=== PATIENT | male | born 1945 | race Caucasian/White ===

== ENCOUNTER 2025-02-16 08:13 | Emergency (ER) | payer MEDICARE, OTHER, SELFPAY ==
[2025-02-16] VITALS (30 sets, daily range): BP systolic 102–170; BP diastolic 68–140; PULSE 70; O2SAT 100; BMI 26.6
--- NOTE | 2025-02-16 11:57 | EDRN ---
Pt does not have a ride or someone to be w/ him when he gets home. Daughter was unable to do this pt states.
--- NOTE | 2025-02-16 11:58 | EDRN ---
Pt calling for a ride and someone to stay w/ him now.
--- NOTE | 2025-02-16 12:02 | EDRN ---
Pt will be picked up by Shane Bourne, a friend.
[2025-02-16] MEDS: DIPRIVAN 80 MG IV (12:11)
--- NOTE | 2025-02-16 12:36 | ED.GENMED ---
History of Present Illness
General
Chief Complaint: Fall
Source: patient
Exam Limitations: none
Time Seen by Provider: 02/16/25 08:30
Nursing documentation reviewed up to this point in time: agreed with
History of Present Illness
History of Present Illness:
79-year-old male presents emergency ferment due to a fall yesterday while coming down from a ladder, about 7 feet. He states the ladder slid backwards and landed on left side. He complains of left little finger, left elbow left shoulder left knee
and low back pain. He denies loss of consciousness, but states he did hit his head. He does not take any blood thinners. He presented to the emergency department via [employer].
Past History
Past History
ED Past Medical History: Hypercholesterolemia and NIDDM
ED Past Surgical History: None
Social History
Tobacco: Non-smoker
Alcohol: Occasional
Drug: None
Living: alone
Employment: Retired
Review of Systems
Review of Systems
Allergies reviewed?: Yes
All Other Systems: Not applicable
Constitutional: Reports no symptoms
EENT: Reports no symptoms
Respiratory: Reports no symptoms
Cardiac: Reports no symptoms
ABD/GI: Reports no symptoms
: Reports no symptoms
Musculoskeletal: Reports joint pain
Skin: Reports no symptoms
Neurological: Reports no symptoms
Endocrine: Reports no symptoms
Hematologic/Lymphatic: Reports no symptoms
Psychiatric: Reports no symptoms
Phy Exam
Physical Exam
Physical Exam:
Physical Exam
General: no apparent distress, not acutely ill
Neck: supple. no meningeal signs. normal posterior pharynx
Heart: s1/s2 regular rate and rhythm, no murmur. equal radial
pulses.
HEENT: Pupils equal round reactive to light, EOMI
Lungs: no acute respiratory distress. clear bilaterally
Abdomen: normal bowel sounds. not tender. no CVAT
Neuro: alert and oriented. no focal neurological deficits cranial nerves II through XII intact
Skin: no rash
Psychiatric: well kept. interactive and cooperative
Extremities: Left forearm swelling, glenohumeral deformity left, left knee tender to palpation fibular head, left little finger tender to palpation proximally. no calf tenderness. negative homans. good distal pulses
Course
Orders/Labs/Results
Orders:
Orders
02/16/25 08:31
CT Head W/o Iv Contrast Urgent
Comment:
Reason For Exam: fall, hit head
Elbow, 3 view, Left [CR Elbow - Left Min 3 Views ] Urgent
Comment:
Reason For Exam: left elbow pain after fall
Lumbar Spine Complete, 4 View [CR Lumbar Spine Comp Min 4 Vw*] Urgent
Comment:
Reason For Exam: fall, low back pain
Shoulder, Left, Trauma CR [CR Shoulder, Trauma - Left] Urgent
Comment:
Reason For Exam: left shoulder pain after fall
02/16/25 08:42
Knee, Left 4 or More Views [CR Knee - Left 4 Or More View*] Urgent
Comment:
Reason For Exam: left knee pain
Tib/Fib, Left 2 View [CR Leg Tibia/fibula Left 2 Vw] Urgent
Comment:
Reason For Exam: fall
02/16/25 09:54
Finger(s)/Thumb 2 View Lt [CR Finger(s)/thumb Min 2 Vw Lt] Urgent
Comment:
Reason For Exam: left pinky pain after fall
Indicate Which Finger:: Little Finger
02/16/25 10:48
ASA Classification Routine
IV Insert/Care/Rem.- Treatment PRN
Propofol [Diprivan] 80 mg IV NOW STA
02/16/25 12:17
CR Shoulder - Left Min 2 View* Urgent
Comment:
Reason For Exam: post closed L shoulder reduction
02/16/25 12:28
CT Upper Ext W/o Iv Cont Lt Urgent
Reason For Exam: left humerus fracture, ct shoulder
02/16/25 13:23
Case Management Consult ONCE
Case Management Consult: VN/Home Care
Requested By:: PHYSICIAN
Vital Signs
Initial and Last Documented VS:
Initial Vital Signs
Temp Pulse Resp BP Pulse Ox
98.0 F 83 18 106/71 98
02/16/25 08:15 02/16/25 08:15 02/16/25 08:15 02/16/25 08:15 02/16/25 08:15
Last Documented Vital Signs
Temp Pulse Resp BP Pulse Ox
99 F 70 15 159/93 98
02/16/25 12:44 02/16/25 13:00 02/16/25 13:00 02/16/25 13:00 02/16/25 13:00
Procedures
Moderate Sedation
ASA Risk Score: Class I
Chart and allergies reviewed: Yes
Consent for anesthesia obtained: Yes
Time out completed (validating right patient & procedure): Yes
Moderate Sedation Start Time(when first medication is given): 12:11
History of difficult intubation: No
Airway free of obstruction: Yes
Patient has a gag reflex: Yes
Patient is able to open mouth: Yes
Patient has no dentures: Yes
Patient has no loose teeth: Yes
Medication administered by Provider during Moderate Sedation: IV Propofol (mg)
Total dose administered: 80
Time drug administered: 12:11
Moderate Sedation Procedure End Time: 12:25
MDM/Problems Addressed
Differential Diagnosis Includes:
Intracranial hemorrhage, shoulder dislocation, tib-fib fracture, olecranon fracture
MDM/Problems Addressed:
79-year-old male with left humerus fracture, left shoulder dislocation, left fibular head fracture, left olecranon fracture, left fifth proximal phalanx fracture hand. Left shoulder reduced under sedation. Discussed with Dr. Morales, who recommends
CT shoulder. Sling and splint placed on finger, elbow.
Chronic conditions affecting care: DM
*Radiology
Radiology exam reviewed: radiology read reviewed (CT head no acute findings, left shoulder x-ray dislocation with proximal humeral head fracture. Left knee x-ray called proximal fibular head fracture, left hand x-ray proximal phalanx fracture)
*Pulse Oximetry
Patient hypoxic: no
*Dean Of Instruction Interpretation
Rate: Dean Of Instruction- N/A
*Critical Care Note
Total Time (30-74mins, 75-104mins- exclusive of procedures): Not Applicable
Patient Management
Social determinants of health affecting care: Living situation and Strong social support
Discussion with other providers: Track Liner Operator (Orthopedics, Dr. Morales)
Escalation/DeEscalation of care consider admission/obs:
Admit not indicated
ED Attending Note
-
Portions of this chart may have been created with voice recognition software.� Occasional wrong word or��sound alike� substitutions may have occurred due to the inherent limitations of voice recognition software.
Discharge Plan
Departure
Patient Disposition: Home (Routine Discharge)
Date of Disposition: 02/16/25
Time of Disposition: 13:48
Patient with high blood pressure during this ER visit?: Yes
Condition: Good
Discharge Problem:
Anterior dislocation of left shoulder, Closed left humeral fracture, Fracture of phalanx, proximal, left hand, Closed fracture of head of left fibula, Closed fracture of left olecranon process
Instructions: Lower leg fracture, Shoulder Dislocation (DC), Preventing falls in adults, Finger Fracture ED, Shoulder or upper arm fracture, MODERATE SEDATION ADULT, Back Pain, BLOOD PRESSURE
Referrals:
Reyes Morales MD [Active] - Call in 1-3 days for appt
Devante Rutherford MD [Family Provider] -
Interventions
Interventions:
*Risk Screen - Suicide Last Done: 02/16/25 10:25
*General Assessment Last Done: 02/16/25 10:24
*Neglect/Abuse Screening Last Done: 02/16/25 10:25
*ED- Fall Risk Assessment Last Done: 02/16/25 10:24
*ED COVID-19 Vaccine History Last Done: 02/16/25 10:24
ED-Musculoskeletal Assessment Last Done: 02/16/25 10:27
ED- Neurological Assessment Last Done: 02/16/25 10:27
ED-Skin Assessment Last Done: 02/16/25 10:27
Discharge Date and Time
Print Language: GEORGIAN
--- NOTE | 2025-02-16 14:29 | EDRN ---
Pt is awaiting friend Shane Bourne for his discharge at this time.
--- NOTE | 2025-02-16 14:41 | EDRN ---
Pt's daughter Lidya just spoke to me from [place]. Pt does not have anyone who will spend the night with him and lives by himself in a house full of stairs as well as unable to walk prior to arrival due to leg pain. Daughter states friend was just
going to drop pt off at home and leave. Pt needs to have someone w/ him overnight. Daughter is requesting pillowcase cleaner referral and possible rehab as pt unable to walk.
--- NOTE | 2025-02-16 14:52 | EDRN ---
Case Management in room w/pt at this time. Pt's friend Shane Bourne just arrived to see pt.
--- NOTE | 2025-02-16 15:04 | EDRN ---
PT ordered to check pt's ability to ambulate.
--- NOTE | 2025-02-16 15:31 | EDRN ---
labs drawn and sent
--- NOTE | 2025-02-16 15:38 | EDRN ---
Pt is awaiting PT for eval to check how pt ambulates.
[2025-02-16 15:41] LABS: % Basophils 0.2 % (0-2); % Eosinophils 0.1 % (0-6); % Immature Granulocytes 0.6 % (0-0.5); % Lymphocytes 9.5 % (20.5-51.1); % Monocytes 7.2 % (1.7-9.3); % Neutrophils 82.4 % (42.2-75.2); Absolute Immature Granulocytes 0.1 10^3/uL (0-0.05); Absolute Lymphocytes 0.8 10^3/uL (1.2-3.4); Absolute Monocytes 0.6 10^3/uL (0.1-0.6); Absolute Neutrophils 7.1 10^3/uL (1.4-6.5); Hematocrit 32.9 % (39.0-52.0); Hemoglobin 11.5 g/dL (13.0-18.0); Mean Corpuscular Hgb 31.6 pg (27.0-31.0); Mean Corpuscular Volume 90.4 fL (80.0-94.0); Mean Platelet Volume 10.8 fL (7.4-10.4); Nucleated Red Blood Cells % 0 % (-); Platelet Count 183 10^3/uL (130-400); Red Blood Cell Count 3.64 10^6/uL (4.70-6.10); Red Cell Dist. Width 12.7 % (11.5-14.5); White Blood Cell Count 8.7 10^3/uL (4.8-10.8)
[2025-02-16 15:59] LABS: Blood Urea Nitrogen 27 mg/dl (9-20); Carbon Dioxide 25 mmol/L (22-30); Chloride 108 mmol/L (98-107); Estimated Creatinine Clearance 46 ml/min; Glucose 152 mg/dl (70-99); Sodium 138 mmol/L (135-145); eGFR > 60.00
--- NOTE | 2025-02-16 16:35 | EDRN ---
Pt is good to go home at this time. Shane Aron will be with pt until naye 22:00 or when daughter gets home and she will be w/him over night.
--- NOTE | 2025-02-16 16:37 | EDRN ---
Per DRE Lin RN pt did ok ambulating w/ PT.
[2025-02-16] MEDS: TYLENOL 1000 MG PO (16:47)
--- NOTE | 2025-02-16 17:08 | CM ---
Patient seen in room in ED with friend Shane
CM role explained
IA completed
Dx: fall
patient fell off ladder yesterday approx 6-7 ft. sustained injuries
Lives alone in a 2 story home, 1 step to enter, stair glide to 2nd floor
PLOF: independent
DME: Cane, grab bars in home, stair glide
Denies VN/Rehab
Denies insecurities
PT rec home health and 26/04 caregivers - options reviewed with patient
Referral placed to VN in [facility]port
Spoke with daughter regarding 26/04 caregivers & resources given. She will contact them for support
Patient will discharge to home & friend Eduardo will transport him & stay with patient until daughter gets there after work tonite. Daughter states she will stay with patient and set up caregivers - states her dad can afford private cg
denies insecurities
PCP: Devante Rutherford
Pharmacy: [facility]
PLAN: discharge to home, with VN and daughter will stay with patient and set up private caregivers
friend Eduardo to transport and he will stay with patient until daughter gets there after work
== END 2025-02-16 16:58 | disposition home or self-care (01) ==
LOC: EMR 08:13
PROVIDERS: Emergency Medicine; EMERGENCY PHYSICIAN Emergency Medicine; FAMILY PHYSICIAN Family Medicine
DX: S42.302A Unspecified fracture of shaft of humerus, left arm, initial encounter for closed fracture (principal); S82.832A Other fracture of upper and lower end of left fibula, initial encounter for closed fracture; S52.022A Displaced fracture of olecranon process without intraarticular extension of left ulna, initial encounter for closed fracture; S43.015A Anterior dislocation of left humerus, initial encounter; W19.XXXA Unspecified fall, initial encounter; E78.00 Pure hypercholesterolemia, unspecified; E11.9 Type 2 diabetes mellitus without complications
CPT/HCPCS: 99284; 23650; 96374; 70450; 72110; 73030; 73080; 73140; 73200; 73564; 73590; 80048; 85025

== ENCOUNTER → 2025-02-19 12:25 | Outpatient (REF) | payer MEDICARE, OTHER, SELFPAY | LOC: HWCARD 12:25 | PROVIDERS: ATTENDING PHYSICIAN Orthopaedic Surgery Hand Surgery; FAMILY PHYSICIAN Family Medicine | DX: Z01.818 Encounter for other preprocedural examination (principal) | CPT/HCPCS: 93005 ==

== ENCOUNTER → 2025-03-13 12:30 | Outpatient (REF) | payer MEDICARE, OTHER, SELFPAY | LOC: RAD 12:30 | PROVIDERS: ATTENDING PHYSICIAN Physician Assistant Surgical; FAMILY PHYSICIAN Family Medicine | DX: Z47.89 Encounter for other orthopedic aftercare (principal); R60.0 Localized edema | CPT/HCPCS: 93971 ==

== ENCOUNTER → 2025-05-11 11:51 | Outpatient (REF) | payer MEDICARE, OTHER, SELFPAY ==
[2025-05-11 12:50] LABS: Hematocrit 34.5 % (39.0-52.0); Hemoglobin 11.2 g/dL (13.0-18.0); Mean Corp Hgb Conc. 32.5 g/dL (33.0-37.0); Mean Corpuscular Volume 89.4 fL (80.0-94.0); Platelet Count 220 10^3/uL (130-400); Red Cell Dist. Width 12.9 % (11.5-14.5)
[2025-05-11 14:32] LABS: Blood Urea Nitrogen 21 mg/dl (9-20); Calcium 10.1 mg/dl (8.4-10.2); Carbon Dioxide 26 mmol/L (22-30); Chloride 108 mmol/L (98-107); Glucose 105 mg/dl (70-99); Potassium 5.4 mmol/L (3.5-5.1); Sodium 140 mmol/L (135-145); eGFR > 60.00
== END ==
LOC: SDSPAT 11:51
PROVIDERS: ATTENDING PHYSICIAN Orthopaedic Surgery Hand Surgery; FAMILY PHYSICIAN Family Medicine
DX: Z01.818 Encounter for other preprocedural examination (principal)
CPT/HCPCS: 36415; 80048; 85027; 93005

== ENCOUNTER 2025-05-15 09:34 | Inpatient (IN) | payer MEDICARE, OTHER, SELFPAY ==
[2025-05-11 12:23] VITALS: BMI 27.1
[2025-05-15] VITALS (18 sets, daily range): BP systolic 100–144; BP diastolic 55–84; BMI 27.1
[2025-05-15 06:32] LABS: Glucose - Point of Care 98 mg/dl (70-99)
[2025-05-15] MEDS: MOBIC 15 MG PO (06:33)
[2025-05-15] MEDS: NORMOSOL-R/PLASMALYTE-A 1000 IV ×2 (06:33→13:59)
[2025-05-15] MEDS: TYLENOL 1000 MG PO (06:33)
[2025-05-15 08:14] LABS: Glucose - Point of Care 110 mg/dl (70-99)
--- NOTE | 2025-05-15 08:33 | CON.ID ---
Consultation
-
Date/Time Consultation Requested: May 15, 2025814
Date/Time Consultation Performed: May 15, [id number]
Requesting Provider: Dr. Tre Landa
Performing Provider: Dr. Hernández
Reason for Consultation: Left olecranon hardware infection
Chief Complaint / Past History
Chief Complaint
Draining left elbow wound
History of Present Illness
Presented from ambulatory surgery for left ulna HW infection.
79-year-old male with history of DM, closed displaced fracture of left shoulder and left ulna (after falling from roof) status post left reverse TSA, coracoid ORIF, olecranon ORIF 02/27/25. While at the [facility], he noticed left elbow pain and
leakage. He may have banged his elbow against the door around that time. 04/20 He went to urgent care- Wound drainage sent for cx which grew MSSA. He was placed on Augmentin by urgent care and continued by [facility]THO. He was taken to [place] this am and
found to have exposed elbow hardware and infection. The left elbow hardware was removed. He is now admitted to hospital. He denies fevers or chills. No sweats. No nausea, vomiting, abdominal pain, or diarrhea.
Past History
Additional Past Medical History:
Diabetes mellitus
Dyslipidemia
Postop LLE DVT
Left fibular head , left shoulder, coracoid, and ulna fracture after falling from ladder while cleaning gutter.
Left reverse TSA, coracoid ORIF, olecranon ORIF 02/27/25
Allergy History:
Sulfa (Sulfonamide Antibiotics) Allergy (Verified 05/15/25 06:10)
PRURITUS
Medications Reviewed: Yes
Current Antibiotics:
none
Social History
Tobacco: Non-Smoker
Alcohol: None
Drug: None
Personal:
Living: With Family
Family History
Family History: Not Pertinent
Review of Systems
Review of Systems
General: Negative Fever, Chills or Change in Appetite
HEENT: Negative Sinus Problems or Headache
Respiratory: Negative Dyspnea or Cough
Gasteroenterology: Negative Nausea or Vomiting
Endocrine: Negative Weakness or Fatigue
All systems: All other systems were reviewed and were negative
Vital Signs
Temp Pulse Resp BP Pulse Ox
97.3 F 73 13 139/68 98
05/15/25 08:05 05/15/25 08:15 05/15/25 08:15 05/15/25 08:05 05/15/25 08:20
Physical Exam
Physical Exam
Constitutional: No Acute Distress and Comfortable
Eyes: No Conjunctival Hemorrhage and Sclera Anicteric
Cardiovascular: Regular Rate and S1/S2
Pulmonary: Clear
Gastrointestinal: Soft, Non Tender, Non Distended and Normal Bowel Sounds
Genito-Urinary: Negative CVA Tenderness
Musculoskeletal: Other (left shoulder no erythema/induration)
Wound: Other (Left olecranon post-op dressing dry)
Neurological: AO x 3
Microbiology Results
Micro:
05/15/25 04:36 Wound Culture - Pending
Elbow - Left Gram Stain - Pending
05/15/25 07:47 Tissue Culture - Pending
Other-Please specify - Left Gram Stain - Pending
05/15/25 07:47 Anaerobic Culture - Pending
Elbow - Left
Assessment / Plan
# Left olecranon ORIF infection
- Outside cx MSSA (04/20)
- 05/15 s/p I+D, hardware removal
- OR cx's pending (suspect MSSA)
- Ordered PICC
- Start cefazolin 2g IV q8h.
- Plan for 6 weeks IV abx through 06/26/25.
Infusiobn sheet submitted to window caser
Care Review
Plan reviewed with: Other Provider (Ashwini Lanier)
[2025-05-15 09:12] LABS: Hematocrit 23.7 % (39.0-52.0); Hemoglobin 7.7 g/dL (13.0-18.0); Mean Corp Hgb Conc. 32.5 g/dL (33.0-37.0); Mean Corpuscular Volume 89.8 fL (80.0-94.0); Nucleated Red Blood Cells % 0 % (-); Platelet Count 136 10^3/uL (130-400); Red Cell Dist. Width 12.9 % (11.5-14.5)
[2025-05-15 10:19] LABS: Blood Urea Nitrogen 12 mg/dl (9-20); Calcium 4.5 mg/dl (8.4-10.2); Carbon Dioxide 12 mmol/L (22-30); Chloride 103 mmol/L (98-107); Estimated Creatinine Clearance 81 ml/min; Glucose 62 mg/dl (70-99); Potassium 4.8 mmol/L (3.5-5.1); Sodium 134 mmol/L (135-145); eGFR > 60.00
[2025-05-15 10:25] LABS: Glucose - Point of Care 158 mg/dl (70-99)
[2025-05-15] MEDS: LIPITOR 20 MG PO (10:30)
[2025-05-15 11:09] LABS: Hematocrit 33.1 % (39.0-52.0); Hemoglobin 10.9 g/dL (13.0-18.0); Mean Corp Hgb Conc. 32.9 g/dL (33.0-37.0); Mean Corpuscular Volume 89.2 fL (80.0-94.0); Platelet Count 183 10^3/uL (130-400); Red Cell Dist. Width 12.9 % (11.5-14.5)
[2025-05-15 11:31] LABS: Blood Urea Nitrogen 21 mg/dl (9-20); Calcium 9.2 mg/dl (8.4-10.2); Carbon Dioxide 23 mmol/L (22-30); Chloride 108 mmol/L (98-107); Estimated Creatinine Clearance 49 ml/min; Glucose 173 mg/dl (70-99); Potassium 4.9 mmol/L (3.5-5.1); Sodium 137 mmol/L (135-145); eGFR > 60.00
[2025-05-15] MEDS: ANCEF 10 IV ×2 (13:59→21:07)
[2025-05-15 14:31] LABS: Glucose - Point of Care 137 mg/dl (70-99)
[2025-05-15 14:58] LABS: C-Reactive Protein < 5.00 mg/L (0.0-10.00)
--- NOTE | 2025-05-15 15:03 | CM ---
Addendum entered by Kaylynn Gasca RN 05/15/25 15:24:
CM met with patient in room. Patient confirmed that he lives alone, but would be willing to learn the IV antibiotics. CM left message for Chelo at [facility] with regards to new referral.
Original Note:
CM received update that patient will need IV antibiotics. CM sent referral via [facility] to [facility] and [facility].
--- NOTE | 2025-05-15 17:00 | VATNOTE ---
Picc order in place. Patient admiited from Pacu. will place picc in am per DR. Villasenor for discharge.
[2025-05-15] MEDS: GLUCOPHAGE XR EXTENDED RELEASE 750 MG PO (17:20)
--- NOTE | 2025-05-15 17:32 | PTCARENOTE ---
Pt arrived 1330 from PACU. Pt aAOX3. no complaints of pain. neurovascular checks to JYOTI NAVARRO. IVF. VSS. Oriented to room and call mann. bed locked and in lowest position.
[2025-05-15] MEDS: COLACE 100 MG PO (19:43)
[2025-05-15 21:09] LABS: Glucose - Point of Care 286 mg/dl (70-99)
[2025-05-15 21:35] LABS: Glucose - Point of Care 281 mg/dl (70-99)
[2025-05-16] VITALS (7 sets, daily range): BP systolic 111–163; BP diastolic 53–75; PULSE 67
[2025-05-16] MEDS: NORMOSOL-R/PLASMALYTE-A 1000 IV (05:03)
[2025-05-16] MEDS: ANCEF 10 IV ×3 (05:04→21:25)
--- NOTE | 2025-05-16 05:32 | W.PN.ORTHO ---
Today's Communication / Plan
-
79M s/p L elbow HWR and I & D 05/15/25
-NWB to LUE
-Limit elbow flexion, extension ROM of the elbow okay; PT/OT consult; wrist elbow hand shoulder ROM okay
-eliquis for DVT ppx, SCDs
-ID consult- pending PICC line and Cx results, appreciate assistance; Tentative for discharge and outpatient follow-up once final antibiotic plan/recommendations per infectious disease. Patient verifies understanding
-reg diet
-pain controlled on current regimen
-f/u 2 weeks in office for wound check
Assessment
.
Distal Motor Intact: Yes
Dressing:
Clean, dry and intact.
Assessment:
Intraoperative cultures and specimens no growth to date or organisms seen
Plan
.
Surgery / Date: 05/15/25 Left elbow HWR, I & D
Activity:
Out of bed.
PT/OT
Subjective
.
.:
Patient resting comfortably.
He is hopeful for discharge today
Vital Signs and Labs
.
Vital Signs and Labs:
Lab Results
05/15/25 10:57
05/15/25 10:57
Temp Pulse Resp BP Pulse Ox
98.1 F 67 16 118/57 98
05/16/25 03:00 05/16/25 03:00 05/16/25 03:00 05/16/25 03:00 05/16/25 03:00
Physical Exam
-
Intact dressing to left upper extremity. Demonstrates distal motor and sensory function intact with minimal peripheral edema
[2025-05-16 08:05] LABS: Glucose - Point of Care 91 mg/dl (70-99)
[2025-05-16] MEDS: LIPITOR 20 MG PO (08:11)
[2025-05-16] MEDS: ELIQUIS 5 MG PO ×2 (08:11→19:27)
[2025-05-16] MEDS: GLUCOPHAGE XR EXTENDED RELEASE 750 MG PO (08:11)
[2025-05-16] MEDS: VISBIOME 1 CAP PO (08:11)
[2025-05-16] MEDS: THERAGRAN 1 TABLET PO (08:11)
[2025-05-16] MEDS: COLACE 100 MG PO ×2 (08:11→19:28)
--- NOTE | 2025-05-16 10:29 | PTOTSP ---
The patient is independent with ambulation and elevations, offering no concerns regarding mobility upon return home. Encouraged the patient to get up and walk more frequently to improve his LE strength and endurance. No PT needs identified at this
time, will sign off.
--- NOTE | 2025-05-16 11:47 | W.PN.ID1 ---
Date of Service
Date of Service: May 16, 2025
Today's Communication
Continue cefazolin.
Assessment / Plan
# Left olecranon ORIF infection
- Outside cx MSSA (04/20)
- 05/15 s/p I+D, hardware removal
- OR cx's S. aureus (suspect MSSA)
- Awaiting PICC placement
- Continue cefazolin 2g IV q8h x 6 weeks through 06/26/25.
Infusion sheet submitted to case assistant 05/15
- DC home when outpt IV abx all set up
Chief Complaint
-: Other (elbow HW infection)
Subjective / Review of Systems
No complaints today. Hoping to go home soon.
Vital Signs / Physical Exam
Vital Signs
Vital Signs
Temp Pulse Resp BP Pulse Ox
98.7 F 63 16 113/53 100
05/16/25 11:10 05/16/25 11:10 05/16/25 11:10 05/16/25 11:10 05/16/25 11:10
Physical Exam
Constitutional: No Acute Distress and Comfortable
Cardiovascular: Regular Rate and S1/S2
Pulmonary: Clear
Gastrointestinal: Soft, Non Tender, Non Distended and Normal Bowel Sounds
Extremities: Negative Edema
Wound: Other (Left arm on sling)
Neurological: AO x 3
Objective Data
Lab Data
Lab Results
05/15/25 10:57
05/15/25 10:57
ESR Cancelled 05/15/25 12:15
Estimated Creat Clear 49 ml/min 05/15/25 10:57
C-Reactive Protein Cancelled 05/15/25 12:15
Most recent labs reviewed.
Micro Results:
05/15/25 07:47 Anaerobic Culture - Preliminary
Elbow - Left Culture pending. Anaerobic cultures are examined after 3
days incubation. Additional information to follow.
05/15/25 04:36 Wound Culture - Preliminary
Elbow - Left No growth
Gram Stain - Preliminary
05/15/25 07:47 Tissue Culture - Preliminary
Other-Please specify - Left Staphylococcus aureus
Gram Stain - Preliminary
--- NOTE | 2025-05-16 12:02 | CM ---
CM spoke with patient. Patient stated that he is going to stay in [facility] for two weeks instead of going to his home in [place], [place]. CM updated [facility] HO[facility] care and Chelo at [facility] with plan for patient to remain in [facility]. [facility] and [facility] are awaiting PICC placement.
Plan for discharge 05/17. CM will continue to watch for PICC placement.
[2025-05-16 12:12] LABS: Glucose - Point of Care 84 mg/dl (70-99)
--- NOTE | 2025-05-16 15:41 | PTCARENOTE ---
Received notification that [facility] PICC is okay to use per IV team.
[2025-05-16 17:24] LABS: Glucose - Point of Care 69 mg/dl (70-99)
[2025-05-16 17:46] LABS: Glucose - Point of Care 78 mg/dl (70-99)
[2025-05-16] MEDS: TYLENOL 650 MG PO (19:28)
[2025-05-16 20:05] LABS: Glucose - Point of Care 89 mg/dl (70-99)
[2025-05-16 22:10] LABS: Glucose - Point of Care 91 mg/dl (70-99)
[2025-05-16 22:10] LABS: Glucose - Point of Care 55 mg/dl (70-99)
[2025-05-17 03:05] LABS: Glucose - Point of Care 89 mg/dl (70-99)
[2025-05-17] MEDS: TYLENOL 650 MG PO (03:14)
--- NOTE | 2025-05-17 04:56 | W.PN.ORTHO ---
Today's Communication / Plan
-
79M s/p L elbow HWR and I & D 05/15/25
-NWB to LUE
-Limit elbow flexion, extension ROM of the elbow okay; PT/OT consult; wrist elbow hand shoulder ROM okay
-eliquis for DVT ppx, SCDs
-ID consult- PICC line placed and Cx results with staph aureus (likely MSSA), appreciate assistance
-IV Cefazolin q 8 hours x 6 weeks per infectious disease. Outpatient abx administration coordinated.
-reg diet
-pain controlled on current regimen
-f/u 2 weeks in office for wound check.
-Stable for d/c home with outpatient abx.
Assessment
.
Distal Motor Intact: Yes
Dressing:
Clean, dry and intact.
Assessment:
79M s/p L elbow HWR and I & D 05/15/25
-NWB to LUE
-Limit elbow flexion, extension ROM of the elbow okay; PT/OT consult; wrist elbow hand shoulder ROM okay
-eliquis for DVT ppx, SCDs
-ID consult- PICC line placed and Cx results with staph aureus (likely MSSA), appreciate assistance
-IV Cefazolin q 8 hours x 6 weeks per infectious disease. Outpatient abx administration coordinated.
-reg diet
-pain controlled on current regimen
-f/u 2 weeks in office for wound check.
-Stable for d/c home with outpatient abx.
Plan
.
Surgery / Date: 05/15/25 Left elbow HWR, I & D
Activity:
Out of bed.
PT/OT
Discharge Plan: Home
Subjective
.
.:
Patient resting comfortably. PICC line placed yesterday. Case management has been coordinating outpatient antibiotic administration. He places to stay in [facility] for the first 2 weeks post op. Eager for d/c home today.
Vital Signs and Labs
.
Vital Signs and Labs:
Lab Results
05/15/25 10:57
05/15/25 10:57
Temp Pulse Resp BP Pulse Ox
98.5 F 68 17 160/75 98
05/16/25 23:05 05/16/25 23:05 05/16/25 23:05 05/16/25 23:05 05/16/25 23:05
Physical Exam
-
Left elbow: dressing is c/d/i. No significant swelling of hand or upper extremity. Full ROM hand and fingers. Gentle ROM elbow without pain. N/v intact distally.
Intra operative cultures growing Staph aureus. Sensitivities pending.
[2025-05-17] MEDS: ANCEF 10 IV (05:07)
[2025-05-17 07:21] VITALS: BP 171/82
[2025-05-17 07:26] LABS: Glucose - Point of Care 51 mg/dl (70-99)
[2025-05-17] MEDS: THERAGRAN 1 TABLET PO (07:40)
[2025-05-17] MEDS: COLACE 100 MG PO (07:40)
[2025-05-17] MEDS: VISBIOME 1 CAP PO (07:40)
[2025-05-17] MEDS: LIPITOR 20 MG PO (07:40)
[2025-05-17] MEDS: ELIQUIS 5 MG PO (07:40)
[2025-05-17 07:43] LABS: Glucose - Point of Care 60 mg/dl (70-99)
[2025-05-17 08:06] LABS: Glucose - Point of Care 75 mg/dl (70-99)
[2025-05-17 08:06] LABS: Glucose - Point of Care 50 mg/dl (70-99)
--- NOTE | 2025-05-17 08:15 | W.DS.TRANS ---
DC Summary - Video Game Engineer
-
Discharge Instructions:
Sleep Apnea Risk Low
Discharge Diagnosis/Procedures S/p left elbow hardware removal and I&D
Diet As tolerated
Activity As tolerated
Additional Activity Nonweightbearing to the left upper extremity.
Continue bandage until postoperative appointment
. Elbow wrist and hand range of motion
encouraged other than deep elbow flexion
Driving Restrictions Not until seen by your Dr
Bathing Restrictions After dressing removed
Wound Care Keep dressing in place until post op. Do not
get dressing wet.
Instructions:
Stand-Alone Forms:
Changes to Home Medications: No
Discharge Medications:
DC Medications w/original date entered in [employer]
Lactobacillus acidophilus-Bifidobac.animalis 2.5 billion cell capsule (Daily Probiotic) 1 cap PO DAILY Supplement 05/08/25
Tart Manjarrez And Turmeric 1 cap PO DAILY Supplement 05/08/25
acetaminophen 500 mg tablet 500 mg PO Q6H PRN PAIN 05/08/25
apixaban 5 mg tablet (Eliquis) 5 mg PO BID Blood Clot Prevention/Tx 05/08/25
atorvastatin 20 mg tablet (Lipitor) 20 mg PO DAILY High Cholesterol 05/08/25
coenzyme Q10 100 mg capsule (CoQ-10) 200 mg PO DAILY Supplement 05/08/25
krill oil 500 mg capsule 500 mg PO DAILY Supplement 05/08/25
metformin 750 mg tablet 750 mg PO DAILY Diabetes 05/08/25
saw palmetto 450 mg capsule 450 mg PO DAILY Supplement 05/08/25
vitamin A-vitamin C-vit E-min tablet 1 tab PO DAILY Supplement 05/08/25
Home Medication Changes
Pending Results: No
--- NOTE | 2025-05-17 08:26 | CM ---
Addendum entered by Kaylynn Gasca RN 05/17/25 10:10:
As per Chelo at [facility], patient is ready for discharge. CM updated patient and bedside RN.
Original Note:
BRIAN received update that [facility] will have an cigarette making machine catcher available to patient at 2pm. Chelo from [facility] plans to call patient and confirm on boarding. Once Chelo has spoke with patient, patient will be able to be discharged to home today.
IMM given.
PLAN: home with [facility] and [facility].
[2025-05-17 08:29] LABS: Glucose - Point of Care 124 mg/dl (70-99)
[2025-05-17] MEDS: GLUCOPHAGE XR EXTENDED RELEASE PO (08:35)
--- NOTE | 2025-05-17 09:56 | W.PN.ID1 ---
Date of Service
Date of Service: May 17, 2025
Today's Communication
DC home.
Assessment / Plan
# Left olecranon ORIF infection
- Outside cx MSSA (04/20)
- 05/15 s/p I+D, hardware removal
- OR cx's S. aureus (MSSA)
- Awaiting PICC placement
- Continue cefazolin 2g IV q8h x 6 weeks through 06/26/25.
Infusion sheet submitted to pillowcase cutter 05/15
- Follow-up with me in 3-4 weeks.
Chief Complaint
-: Other (elbow HW infection)
Subjective / Review of Systems
Being discharged to home now.
Vital Signs / Physical Exam
Vital Signs
Vital Signs
Temp Pulse Resp BP Pulse Ox
98.3 F 61 17 171/82 99
05/17/25 07:21 05/17/25 07:21 05/17/25 07:21 05/17/25 07:21 05/17/25 09:41
Physical Exam
Constitutional: No Acute Distress and Comfortable
Cardiovascular: Regular Rate and S1/S2
Pulmonary: Clear
Gastrointestinal: Soft, Non Tender, Non Distended and Normal Bowel Sounds
Extremities: Negative Edema
Wound: Other (Left arm on sling)
Neurological: AO x 3
Lines: PICC (RUE)
Objective Data
Lab Data
Lab Results
05/15/25 10:57
05/15/25 10:57
ESR Cancelled 05/15/25 12:15
Estimated Creat Clear 49 ml/min 05/15/25 10:57
C-Reactive Protein Cancelled 05/15/25 12:15
Most recent labs reviewed.
Micro Results:
05/15/25 07:47 Anaerobic Culture - Preliminary
Elbow - Left Culture pending. Anaerobic cultures are examined after 3
days incubation. Additional information to follow.
05/15/25 04:36 Wound Culture - Preliminary
Elbow - Left No growth
Gram Stain - Preliminary
05/15/25 07:47 Tissue Culture - Final
Other-Please specify - Left S aureus-Methicillin Sensitive
Gram Stain - Final
== END 2025-05-17 10:19 | disposition home health service (06) | DRG 508 ==
LOC: 2 SOUTH 09:34
PROVIDERS: Student in an Organized Health Care Education/Training Program; ADMITTING PHYSICIAN Orthopaedic Surgery Hand Surgery; CONSULT PHYSICIAN Internal Medicine Infectious Disease; FAMILY PHYSICIAN Family Medicine
PROC: 0RBM0ZZ Excision of Left Elbow Joint, Open Approach (ICD-10-PCS; 2025-05-15)
PROC: 0RPM04Z Removal of Internal Fixation Device from Left Elbow Joint, Open Approach (ICD-10-PCS; 2025-05-15)
PROC: 0R9M0ZZ Drainage of Left Elbow Joint, Open Approach (ICD-10-PCS; 2025-05-15)
DX: T84.615A Infection and inflammatory reaction due to internal fixation device of left ulna, initial encounter (principal); B99.9 Unspecified infectious disease; Y79.1 Therapeutic (nonsurgical) and rehabilitative orthopedic devices associated with adverse incidents; E11.9 Type 2 diabetes mellitus without complications; E78.5 Hyperlipidemia, unspecified; Z96.612 Presence of left artificial shoulder joint
CPT/HCPCS: 71045; 80048; 82962; 85025; 85027; 85652; 86140; 87070; 87075; 87147; 87176; 87186; 87205; 97162; 97166

== ENCOUNTER 2025-05-18 16:46 | Emergency (ER) | payer MEDICARE, OTHER, SELFPAY ==
[2025-05-18 16:49] VITALS: BP 206/108
--- NOTE | 2025-05-18 17:58 | ED.GENMED ---
History of Present Illness
General
Chief Complaint: Catheter/Tube Problem
Source: patient and records
Exam Limitations: none
Time Seen by Provider: 05/18/25 17:35
History of Present Illness
History of Present Illness:
79yoM with a history of a left olecranon infection currently receiving IV Ancef through a PICC line presenting for a PICC line issue. Patient underwent hardware removal [address] Landa[address] OR cultures grew out MSSA and patient was seen by
infectious disease with plan for 6 weeks of IV Ancef. Patient was discharged yesterday and does have home nursing staff coming to visit him. He was unable to flush the PICC line today so he came to the ED for evaluation. He denies any fevers.
Past History
Past History
ED Past Medical History: Hypercholesterolemia and NIDDM
ED Past Surgical History: None
Social History
Tobacco: Non-smoker
Alcohol: Occasional
Drug: None
Living: alone
Employment: Retired
Phy Exam
General Physical Exam
General Presentation: well appearing and no apparent distress
General Skin: warm and dry
General Habitus: normal
General Mental: alert
ENT Exam
ENT Exam: normocephalic
Pulmonary Exam
Pulmonary Exam: no respiratory distress
Neurological Exam
Neurological Exam: alert
Arnua Coma Scale
Eye Opening: Spontaneous
Verbal Response: Oriented
Motor Response: Obeys Commands
GCS Total Score: 15
Musculoskeletal Exam
Musculoskeletal Exam: other (RUE PICC line in place without surrounding erythema or swelling)
Skin Exam
Skin Exam: normal color and warm/dry
Psychiatric Exam
Psychiatric Exam: normal mood/affect
Course
Orders/Labs/Results
Orders:
Orders
05/18/25 17:30
CR Chest Single View Urgent
Comment:
Reason For Exam: check PICC placement per VAT
Vital Signs
Initial and Last Documented VS:
Initial Vital Signs
Temp Pulse Resp BP Pulse Ox
97.9 F 68 16 206/108 99
05/18/25 16:49 05/18/25 16:49 05/18/25 16:49 05/18/25 16:49 05/18/25 16:49
Last Documented Vital Signs
Temp Pulse Resp BP Pulse Ox
97.9 F 68 16 206/108 99
05/18/25 16:49 05/18/25 16:49 05/18/25 16:49 05/18/25 16:49 05/18/25 18:00
MDM/Problems Addressed
Differential Diagnosis Includes:
79yoM presenting for difficulty flushing his PICC line. IV nurse came to assess PICC line prior to my assessment and both lumens were able to be flushed with blood return. CXR obtained which shows proper placement of PICC line. Patient stable for
discharge.
*Pulse Oximetry
SaO2: 99
Oxygen Mode of Delivery: Room air
Patient hypoxic: no (99%)
*Critical Care Note
Total Time (30-74mins, 75-104mins- exclusive of procedures): Not Applicable
ED Attending Note
-
Portions of this chart may have been created with voice recognition software.� Occasional wrong word or��sound alike� substitutions may have occurred due to the inherent limitations of voice recognition software.
Discharge Plan
Departure
Patient Disposition: Home (Routine Discharge)
Date of Disposition: 05/18/25
Time of Disposition: 18:43
Patient with high blood pressure during this ER visit?: Yes
Discharge Problem:
PIC line (peripherally inserted central catheter) flush
Instructions: How to care for a peripherally inserted central catheter (PICC)
Prescriptions:
No Action
atorvastatin [Lipitor] 20 mg Tablet
20 mg PO DAILY
acetaminophen 500 mg Tablet
500 mg PO Q6H PRN (Reason: PAIN)
vitamin A-vitamin C-vit E-min Tablet
1 tab PO DAILY
coenzyme Q10 [CoQ-10] 100 mg Capsule
200 mg PO DAILY
saw palmetto 450 mg Capsule
450 mg PO DAILY
krill oil 500 mg Capsule
500 mg PO DAILY
Eliquis 5 mg Tablet
5 mg PO BID
Daily Probiotic 2.5 billion cell Capsule
1 cap PO DAILY
metformin 750 mg Tablet
750 mg PO DAILY
Tart Manjarrez And Turmeric
1 cap PO DAILY
cefazolin 10 gram Recon Soln
2 g IV Q8H 42 Days 0RF
Referrals:
Devante Rutherford MD [Family Provider, Family Practice]
Activity Restrictions/Additional Instructions:
Return to the ER with any issues or if your PICC line stops working.
Interventions
Interventions:
*Risk Screen - Suicide Last Done: 05/18/25 16:54
*General Assessment Last Done: 05/18/25 16:54
*Neglect/Abuse Screening Last Done: 05/18/25 16:54
*ED- Fall Risk Assessment Last Done: 05/18/25 17:55
*ED COVID-19 Vaccine History Last Done: 05/18/25 17:55
*Nursing Disposition Last Done: 05/18/25 18:46
[facility]-Ggjygsvpxc Assessment Last Done: 05/18/25 17:56
ED-Male Genitourinary Assessment Last Done: 05/18/25 17:56
Discharge Date and Time
Discharge Date/Time: 05/18/25 18:46
Print Language: SWEDISH
--- NOTE | 2025-05-18 18:05 | VATNOTE ---
Called to the ED to assess PICC line, able to flush and aspirate both lumens. Pt appears to have removed the cap from his extension tubing, tubing removed and discarded. New extension tubing primed and placed for pt. Education provided on equipment
use so pt does not remove cap again.
== END 2025-05-18 18:46 | disposition home or self-care (01) ==
LOC: EMR 16:46
PROVIDERS: EMERGENCY PHYSICIAN Emergency Medicine; FAMILY PHYSICIAN Family Medicine
DX: Z45.2 Encounter for adjustment and management of vascular access device (principal); R03.0 Elevated blood-pressure reading, without diagnosis of hypertension
CPT/HCPCS: 99283; 71045